=== PATIENT | male | born 1995 | race Caucasian/White ===

== ENCOUNTER 2017-06-17 22:17 | Emergency (ER) | payer SELFPAY ==
[~2017-06-17] VITALS: Ht 175.3 cm; Wt 68.0 kg
[2017-06-17 22:22] VITALS: BP 127/78
--- NOTE | 2017-06-17 23:49 | NUR ---
PT ALVARO BLS. TAKEN TO BED 3
--- NOTE | 2017-06-18 | NUR ---
22Y/M PT BIBA FOUND IN A PARKING LOT, ALOC , ETOH, PUPILS CONSTRICTED, NARCAN 1 MG IVP WAS GIVEN ENROUTE, BS 80 MG/DL AAO X4, GCS 15, AMBULATORY WITH STEDAY GAIT. RESPIRTAIONS ROOM AIR, EVEN AND UNLABORED. SKIN WARM AND DRY. VSS, ER MADE AWARE OF PT. STATUS.
--- NOTE | 2017-06-18 00:30 | NUR ---
Patient being evaluated by DR. QUEZADA at bedside.
--- NOTE | 2017-06-18 00:50 | NUR ---
Patient discharged with v/s stable. Written and verbal after care instructions given and explained. Patient verbalized understanding. Ambulatory with steady gait. All questions addressed prior to discharge. Advised to follow up with PMD.
[2017-06-18 02:16] VITALS: BP 130/80
== END 2017-06-18 00:50 | disposition home or self-care (01) ==
LOC: MED 22:17
DX: F10.129 Alcohol abuse with intoxication, unspecified (principal); R41.82 Altered mental status, unspecified
CPT/HCPCS: 99283